=== PATIENT | female | born 1960 | race American Indian/Alaskan Native ===

== ENCOUNTER 2018-01-15 13:00 | Emergency (ER) | payer MEDICARE ==
[2018-01-15 14:10] LABS: Basophils # (Auto) 0.1 K/mm3 (0.0-0.1); Basophils % (Auto) 0.7 % (0.0-1.8); Eosinophils # (Auto) 0.1 K/mm3 (0.0-0.4); Hematocrit 41.1 % (30.3-42.9); Hemoglobin 13.2 gm/dl (10.1-14.3); Lymphocytes # (Auto) 2.7 K/mm3 (1.2-5.4); Lymphocytes % (Auto) 27.8 % (13.4-35.0); Mean Corpuscular HGB Conc 32 % (30-34); Mean Corpuscular Hemoglobin 27 pg (28-32); Mean Corpuscular Volume 84 fl (79-97); Monocytes # (Auto) 0.4 K/mm3 (0.0-0.8); Monocytes % (Auto) 3.6 % (0.0-7.3); Platelet Count 326 K/mm3 (140-440); Red Blood Count 4.91 M/mm3 (3.65-5.03); Red Cell Distribution Width 14.5 % (13.2-15.2)
[2018-01-15 14:22] LABS: Alanine Aminotransferase 15 units/L (7-56); Albumin 4.2 g/dL (3.9-5); BUN/Creatinine Ratio 11; Blood Urea Nitrogen 11 mg/dL (7-17); Calcium 9.5 mg/dL (8.4-10.2); Hemolysis Index 57
[2018-01-15 14:26] LABS: Bilirubin,Urine NEG (Negative); Blood,Urine NEG (Negative); Color,Urine Yellow (Yellow); Mucus,Urine FEW /HPF; Protein,Urine <15 mg/dL mg/dL (Negative); Urobilinogen,Urine < 2.0 mg/dL (<2.0)
[2018-01-15 14:27] LABS: WBC,Urine < 1.0 /HPF (0.0-6.0)
--- NOTE | 2018-01-15 14:56 | Cat Scan Report ---
CT HEAD WITHOUT CONTRAST: HISTORY: Weakness, blurred vision. TECHNIQUE: Sequential 2.5mm CT images. FINDINGS: Cerebral Parenchyma: Within normal limits. Cerebellum: Within normal limits. Brainstem: Within normal limits. Ventricles: Normal. Sella: Normal. Extra-axial spaces: Normal. Basal Cisterns: Normal. Intracranial Hemorrhage: None. Midline Shift: None. Calvarium: Normal. Sinuses: Normal. Mastoid Air Cells: Normal. Visualized Orbits: Normal. IMPRESSION: Cranial CT scan within normal limits. No significant change since 03/09/16.
[2018-01-15] MEDS ORDERED: APRESOLINE IV ONE ×2 (17:40→19:53)
--- NOTE | 2018-01-15 17:45 | Emergency Department Report ---
ED Neuro Deficit HPI - General Chief Complaint: Weakness Stated Complaint: BLURED VISION Time Seen by Provider: 01/15/18 15:39 Source: patient Mode of arrival: Ambulatory Limitations: No Limitations - History of Present Illness Initial Comments: This is a pleasant 57-year-old female with a past medical history significant for asthma, COPD, TIA, diabetes, hypertension, hemiparesis of the left side, gait abnormality, anxiety, acute lacunar stroke in 2017, ileus, palpitations, vertigo, dyspnea who reports that she was in her usual state of health this morning but began to experience weakness and dizziness and blurred vision that lasted about 10 minutes. She states that these episodes would come and go. She does report that she has had similar episodes in the past. She reports that her blood pressure was also elevated. She is concerned about a TIA or new cerebrovascular event at this time. Her speech is per usual. She denies smoking alcohol or illicit drug use. -: Sudden, minutes(s) (10) Location: left arm, left leg Presenting Symptoms: Present: Weak/Paralyzed One Side (chronic) Place: home Severity: mild Quality: weak Improves With: none Worsens With: none Context: sudden onset Associated Symptoms: malise, shortness of breath - Related Data Home Medications: Home Medications Medication Instructions Recorded Confirmed Last Taken Aspirin [Aspirin BABY CHEW TAB] 2 tab PO DAILY 03/09/16 03/09/16 03/09/16 Lisinopril [Zestril TAB] 40 mg PO QDAY 03/09/16 03/09/16 Unknown Simvastatin [Zocor TAB] 1 tab PO QHS 03/09/16 03/09/16 Unknown Triamter/Hctz 37.5-25 mg 1 tab PO DAILY 03/09/16 03/09/16 03/09/16 metFORMIN [Glucophage] 1,000 mg PO TID 03/09/16 03/09/16 03/09/16 Previous Rx's Medication Instructions Recorded Last Taken Type ALBUTEROL Inhaler [ProAir HFA 2 puff IH Q4H PRN #1 inha 02/23/15 Unknown Rx Inhaler] ISOSORBIDE MONOnitrate [Imdur ER] 30 mg PO QDAY #30 tablet 02/23/15 Unknown Rx hydrALAZINE [Apresoline TAB] 25 mg PO TID #90 tablet 02/23/15 Unknown Rx Losartan [Cozaar] 100 mg PO QDAY #30 tablet 01/15/18 Unknown Rx amLODIPine [Norvasc] 10 mg PO DAILY #30 tab 01/15/18 Unknown Rx Allergies/Adverse Reactions: Allergies Allergy/AdvReac Type Severity Reaction Status Date / Time No Known Allergies Allergy Verified 03/09/16 13:03 ED Review of Systems ROS: Stated complaint: BLURED VISION Other details as noted in HPI Comment: All other systems reviewed and negative Constitutional: see HPI Eyes: as per HPI ENT: as per HPI Respiratory: see HPI Cardiovascular: as per HPI Endocrine: see HPI Gastrointestinal: as per HPI Genitourinary: as per HPI Musculoskeletal: as per HPI Skin: as per HPI Neurological: as per HPI Psychiatric: as per HPI Hematological/Lymphatic: as per HPI ED Past Medical Hx - Past Medical History Hx Hypertension: Yes Hx CVA: Yes (TIA/ABN GAIT/LUCUNAR STROKE) Hx Heart Attack/AMI: Yes Hx Congestive Heart Failure: No Hx Diabetes: Yes Hx Psychiatric Treatment: Yes (ANXIETY) Hx Asthma: Yes Hx COPD: Yes Additional medical history: vertigo///LEFT SIDED WEAKNESS R/T TIA/ILEUS, PALPITATIONS - Social History Smoking Status: Never Smoker Substance Use Type: None - Medications Home Medications: Home Medications Medication Instructions Recorded Confirmed Last Taken Type ALBUTEROL Inhaler [ProAir HFA 2 puff IH Q4H PRN #1 inha 02/23/15 03/09/16 Unknown Rx Inhaler] ISOSORBIDE MONOnitrate [Imdur ER] 30 mg PO QDAY #30 tablet 02/23/15 03/09/16 Unknown Rx hydrALAZINE [Apresoline TAB] 25 mg PO TID #90 tablet 02/23/15 03/09/16 Unknown Rx Aspirin [Aspirin BABY CHEW TAB] 2 tab PO DAILY 03/09/16 03/09/16 03/09/16 History Lisinopril [Zestril TAB] 40 mg PO QDAY 03/09/16 03/09/16 Unknown History Simvastatin [Zocor TAB] 1 tab PO QHS 03/09/16 03/09/16 Unknown History Triamter/Hctz 37.5-25 mg 1 tab PO DAILY 03/09/16 03/09/16 03/09/16 History metFORMIN [Glucophage] 1,000 mg PO TID 03/09/16 03/09/16 03/09/16 History Losartan [Cozaar] 100 mg PO QDAY #30 tablet 01/15/18 Unknown Rx amLODIPine [Norvasc] 10 mg PO DAILY #30 tab 01/15/18 Unknown Rx ED Neuro Physical Exam - General Limitations: No Limitations General appearance: alert, in no apparent distress Suspected Stroke: Yes - Head Head exam: Present: atraumatic, normocephalic - Eye Eye exam: Present: normal appearance, PERRL, EOMI - ENT ENT exam: Present: normal exam, normal orophraynx - Neck Neck exam: Present: normal inspection - Respiratory Respiratory exam: Present: normal lung sounds bilaterally. Absent: respiratory distress, wheezes, rales, rhonchi - Cardiovascular Cardiovascular Exam: Present: regular rate, normal rhythm, normal heart sounds - GI/Abdominal GI/Abdominal exam: Present: soft, distended - Rectal Rectal exam: Present: deferred - External exam: Present: normal external exam - Extremities Exam Extremities exam: Present: normal inspection, normal capillary refill, other ( the patient does have weakness of the left hand and audit director strength, as well as weakness of the left lower extremity against gravity and resistance when compared to the right. This is a part of her past medical history and appears to be chronic and without change from previous.) - Back Exam Back exam: Present: normal inspection, full ROM - Neurological Exam Neurological exam: Present: alert, altered, CN II-XII intact - NIHSS Assessment Interval: Baseline 1a. Level of Consciousness: alert 1b. LOC Questions: answers correctly 1c. LOC Commands: performs tasks correctly 2. Best Gaze: normal 3. Visual: no visual loss 4. Facial Palsy: normal symmetrical movement 5b. Motor Arm Right: no drift 5a. Motor Arm Left: no drift 6a. Motor Leg Left: no drift 6b. Motor Leg Right: no drift 7. Limb Ataxia: absent 8. Sensory: normal 9. Best Language: no aphasia 10. Dysarthria: normal 11. Extinction/Inattention: no abnormality Total Score: 0 Stroke Severity: No Stroke Symptoms - Psychiatric Psychiatric exam: Present: normal affect, normal mood - Skin Skin exam: Present: warm, dry, intact, normal color ED Course Vital Signs 01/15/18 01/15/18 01/15/18 13:36 17:39 17:51 Temperature 98 F Pulse Rate 103 H 85 85 Respiratory 18 19 Rate Blood Pressure 220/113 176/96 Blood Pressure 196/100 [Left] O2 Sat by Pulse 99 Oximetry 01/15/18 01/15/18 01/15/18 18:16 18:30 18:40 Temperature Pulse Rate 95 H Respiratory 16 16 Rate Blood Pressure 151/79 Blood Pressure 154/82 [Left] O2 Sat by Pulse Oximetry 01/15/18 01/15/18 19:18 19:30 Temperature Pulse Rate 90 105 H Respiratory 17 17 Rate Blood Pressure 141/83 168/115 Blood Pressure [Left] O2 Sat by Pulse 97 Oximetry - Reevaluation(s) Reevaluation #1: 01/15/18 17:48 Her blood work is within normal limits. Her head CT does not appear to show any new findings at this time. Her blood pressure however remains high. We gave hydralazine 10 mg IV 1. The patient states she still does not feel "normal". At this time we will try to control her blood pressure, and discussed the case with the hospitalist. 01/15/18 19:59 After discussion with the hospitalist, we will give an additional dose of hydralazine 10 mg IV here, also losartan 100 mg by mouth, and started her on an outpatient basis on amlodipine 10 mg and losartan 100 mg by mouth she is to follow-up also with her primary care doctor. As to the patient she was agreeable to the plan we will discharge accordingly. - Lab Data Result diagrams: 01/15/18 13:51 01/15/18 13:51 Lab Results 01/15/18 01/15/18 01/15/18 Range/Units 13:51 13:51 14:15 WBC 9.8 (4.5-11.0) K/mm3 RBC 4.91 (3.65-5.03) M/mm3 Hgb 13.2 (10.1-14.3) gm/dl Hct 41.1 (30.3-42.9) % MCV 84 (79-97) fl MCH 27 L (28-32) pg MCHC 32 (30-34) % RDW 14.5 (13.2-15.2) % Plt Count 326 (140-440) K/mm3 Lymph % (Auto) 27.8 (13.4-35.0) % [place] % (Auto) 3.6 (0.0-7.3) % Eos % (Auto) 1.0 (0.0-4.3) % Baso % (Auto) 0.7 (0.0-1.8) % Lymph # 2.7 (1.2-5.4) K/mm3 Crenshaw # 0.4 (0.0-0.8) K/mm3 Eos # 0.1 (0.0-0.4) K/mm3 Baso # 0.1 (0.0-0.1) K/mm3 Seg Neutrophils % 66.9 (40.0-70.0) % Seg Neutrophils # 6.6 (1.8-7.7) K/mm3 Sodium 140 (137-145) mmol/L Potassium 4.3 (3.6-5.0) mmol/L Chloride 101.6 (98-107) mmol/L Carbon Dioxide 25 (22-30) mmol/L Anion Gap 18 mmol/L BUN 11 (7-17) mg/dL Creatinine 1.0 (0.7-1.2) mg/dL Estimated GFR > 60 ml/min BUN/Creatinine Ratio 11 % Glucose 105 H (65-100) mg/dL POC Glucose (70-105) Calcium 9.5 (8.4-10.2) mg/dL Total Bilirubin 0.30 (0.1-1.2) mg/dL AST 16 (5-40) units/L ALT 15 (7-56) units/L Alkaline Phosphatase 161 H (35-129) units/L Total Protein 6.9 (6.3-8.2) g/dL Albumin 4.2 (3.9-5) g/dL Albumin/Globulin Ratio 1.6 % Urine Color Yellow (Yellow) Urine Turbidity Clear (Clear) Urine pH 6.0 (5.0-7.0) Ur Specific [place] 1.009 (1.003-1.030) Urine Protein <15 mg/dl (Negative) mg/dL Urine Glucose (UA) Neg (Negative) mg/dL Urine Ketones Neg (Negative) mg/dL Urine Blood Neg (Negative) Urine Nitrite Neg (Negative) Urine Bilirubin Neg (Negative) Urine Urobilinogen < 2.0 (<2.0) mg/dL Ur Leukocyte Esterase Neg (Negative) Urine WBC (Auto) < 1.0 (0.0-6.0) /HPF Urine RBC (Auto) 2.0 (0.0-6.0) /HPF U Epithel Cells (Auto) 5.0 (0-13.0) /HPF Urine Mucus Few /HPF 01/15/18 Range/Units 14:30 WBC (4.5-11.0) K/mm3 RBC (3.65-5.03) M/mm3 Hgb (10.1-14.3) gm/dl Hct (30.3-42.9) % MCV (79-97) fl MCH (28-32) pg MCHC (30-34) % RDW (13.2-15.2) % Plt Count (140-440) K/mm3 Lymph % (Auto) (13.4-35.0) % Crenshaw % (Auto) (0.0-7.3) % Eos % (Auto) (0.0-4.3) % Baso % (Auto) (0.0-1.8) % Lymph # (1.2-5.4) K/mm3 C[place]shaw # (0.0-0.8) K/mm3 Eos # (0.0-0.4) K/mm3 Baso # (0.0-0.1) K/mm3 Seg Neutrophils % (40.0-70.0) % Seg Neutrophils # (1.8-7.7) K/mm3 Sodium (137-145) mmol/L Potassium (3.6-5.0) mmol/L Chloride (98-107) mmol/L Carbon Dioxide (22-30) mmol/L Anion Gap mmol/L BUN (7-17) mg/dL Creatinine (0.7-1.2) mg/dL Estimated GFR ml/min BUN/Creatinine Ratio % Glucose (65-100) mg/dL POC Glucose 98 (70-105) Calcium (8.4-10.2) mg/dL Total Bilirubin (0.1-1.2) mg/dL AST (5-40) units/L ALT (7-56) units/L Alkaline Phosphatase (35-129) units/L Total Protein (6.3-8.2) g/dL Albumin (3.9-5) g/dL Albumin/Globulin Ratio % Urine Color (Yellow) Urine Turbidity (Clear) Urine pH (5.0-7.0) Ur Specific [place] (1.003-1.030) Urine Protein (Negative) mg/dL Urine Glucose (UA) (Negative) mg/dL Urine Ketones (Negative) mg/dL Urine Blood (Negative) Urine Nitrite (Negative) Urine Bilirubin (Negative) Urine Urobilinogen (<2.0) mg/dL Ur Leukocyte Esterase (Negative) Urine WBC (Auto) (0.0-6.0) /HPF Urine RBC (Auto) (0.0-6.0) /HPF U Epithel Cells (Auto) (0-13.0) /HPF Urine Mucus /HPF Critical care attestation.: If time is entered above; I have spent that time in minutes in the direct care of this critically ill patient, excluding procedure time. ED Disposition Clinical Impression: Hypertensive emergency TIA (transient ischemic attack) Qualifiers: Transient cerebral ischemia type: other Qualified Code(s): G45.8 - Other transient cerebral ischemic attacks and related syndromes Disposition: DC-01 TO HOME OR SELFCARE Is pt being admited?: No Does the pt Need Aspirin: No Condition: Stable Instructions: Hypertension (ED) Prescriptions: amLODIPine [Norvasc] 10 mg PO DAILY #30 tab Losartan [Cozaar] 100 mg PO QDAY #30 tablet Referrals: PRIMARY CARE, [Primary Care Provider] - 3-5 Days
[2018-01-15] MEDS ORDERED: COZAAR PO ONE (19:53)
[2018-01-15 20:05] VITALS: BP 172/88
== END 2018-01-15 20:15 | disposition home or self-care (01) ==
LOC: ED 13:00
DX: I10 Essential (primary) hypertension (principal); G45.8 Other transient cerebral ischemic attacks and related syndromes; J45.909 Unspecified asthma, uncomplicated; E11.9 Type 2 diabetes mellitus without complications; G81.94 Hemiplegia, unspecified affecting left nondominant side; F41.9 Anxiety disorder, unspecified; Z79.82 Long term (current) use of aspirin
CPT/HCPCS: 36415; 51701; 70450; 80053; 81001; 82962; 85025; 93005; 93010; 96374; 96376; 99284; J0360

== ENCOUNTER 2018-05-27 18:20 | Inpatient (IN) | payer MEDICARE ==
[2018-05-27 19:14] LABS: Basophils # (Auto) 0.1 K/mm3 (0.0-0.1); Basophils % (Auto) 0.8 % (0.0-1.8); Eosinophils # (Auto) 0.1 K/mm3 (0.0-0.4); Eosinophils % (Auto) 0.7 % (0.0-4.3); Hematocrit 39.6 % (30.3-42.9); Lymphocytes # (Auto) 3.1 K/mm3 (1.2-5.4); Lymphocytes % (Auto) 29.5 % (13.4-35.0); Mean Corpuscular HGB Conc 33 % (30-34); Mean Corpuscular Hemoglobin 28 pg (28-32); Mean Corpuscular Volume 85 fl (79-97); Monocytes # (Auto) 0.4 K/mm3 (0.0-0.8); Monocytes % (Auto) 4.1 % (0.0-7.3); Platelet Count 329 K/mm3 (140-440); Red Blood Count 4.65 M/mm3 (3.65-5.03); Red Cell Distribution Width 14.3 % (13.2-15.2)
[2018-05-27 19:28] LABS: BUN/Creatinine Ratio 12; Blood Urea Nitrogen 11 mg/dL (7-17); Calcium 9.7 mg/dL (8.4-10.2); Hemolysis Index 6
[2018-05-27] MEDS ORDERED: NITROSTAT SL ONE (21:26)
[2018-05-27] MEDS ORDERED: TYLENOL #3 PO ONE (21:26)
--- NOTE | 2018-05-27 21:26 | Emergency Department Report ---
HPI - General Chief Complaint: Chest Pain Time Seen by Provider: 05/27/18 19:32 - HPI HPI: The patient is a 58-year-old female presents for evaluation of chest pain. The patient reports chest pain since 11 AM this morning, pressure-like in quality, constant since onset, currently moderate in severity, exacerbated with activity. The patient denies trauma to the chest, cough, syncope, dyspnea, hemoptysis, unilateral leg swelling, recent immobilization, history of DVT or PE , hx of recent cancer. ED Past Medical Hx - Past Medical History Hx Hypertension: Yes Hx CVA: Yes (TIA/ABN GAIT/LUCUNAR STROKE) Hx Heart Attack/AMI: Yes Hx Congestive Heart Failure: No Hx Diabetes: Yes Hx Psychiatric Treatment: Yes (ANXIETY) Hx Asthma: Yes Hx COPD: Yes Additional medical history: vertigo///LEFT SIDED WEAKNESS R/T TIA/ILEUS, PALPITATIONS - Surgical History Hx Cholecystectomy: Yes - Social History Smoking Status: Never Smoker Substance Use Type: None - Medications Home Medications: Home Medications Medication Instructions Recorded Confirmed Last Taken Type ALBUTEROL Inhaler [ProAir HFA 2 puff IH Q4H PRN #1 inha 02/23/15 03/09/16 Unknown Rx Inhaler] ISOSORBIDE MONOnitrate [Imdur ER] 30 mg PO QDAY #30 tablet 02/23/15 03/09/16 Unknown Rx hydrALAZINE [Apresoline TAB] 25 mg PO TID #90 tablet 02/23/15 03/09/16 Unknown Rx Aspirin [Aspirin BABY CHEW TAB] 2 tab PO DAILY 03/09/16 03/09/16 03/09/16 History Lisinopril [Zestril TAB] 40 mg PO QDAY 03/09/16 03/09/16 Unknown History Simvastatin [Zocor TAB] 1 tab PO QHS 03/09/16 03/09/16 Unknown History Triamter/Hctz 37.5-25 mg 1 tab PO DAILY 03/09/16 03/09/16 03/09/16 History metFORMIN [Glucophage] 1,000 mg PO TID 03/09/16 03/09/16 03/09/16 History Losartan [Cozaar] 100 mg PO QDAY #30 tablet 01/15/18 Unknown Rx amLODIPine [Norvasc] 10 mg PO DAILY #30 tab 01/15/18 Unknown Rx ED Review of Systems ROS: Stated complaint: CHEST PAIN Other details as noted in HPI Constitutional: denies: fever ENT: denies: throat or neck pain Respiratory: denies: cough, shortness of breath Cardiovascular: reports chest pain Endocrine: denies unexplained weight loss or gain Gastrointestinal: denies: abdominal pain, nausea Genitourinary: denies: dysuria Musculoskeletal: denies: leg swelling Skin: denies: rash Neurological: denies: headache Hematological/Lymphatic: denies: easy bleeding or easy bruising Psych: denies sadness or hopelessness Physical Exam - Physical Exam Vital Signs: Vital Signs 05/27/18 05/27/18 05/27/18 18:42 19:39 21:01 Temperature 98 F 98.5 F Pulse Rate 62 65 75 Respiratory 18 17 17 Rate Blood Pressure 196/97 170/77 Blood Pressure 175/90 [Right] O2 Sat by Pulse 100 100 97 Oximetry Physical Exam: General: well-nourished, well-developed, no acute distress Head: Normocephalic, atraumatic Eyes: normal sclera ENT: Mucous membranes are pink and moist Neck: trachea midline, neck supple, No neck stiffness, no cervical adenopathy Respiratory: Breath sounds equal bilaterally, no wheezing, rales, or rhonchi Cardio: S1 and S2 present, no murmurs, rubs, gallops, capillary refill is brisk Abdomen: Normoactive bowel sounds, soft abdomen, no rigidity, no guarding or rebound tenderness Chest WALL/Back: No tenderness to palpation of the chest wall, no CVA tenderness with percussion Musc: No pitting edema Skin: No rash Neuro: no facial drooping, normal speech Psych: Normal affect ED Course Vital Signs 05/27/18 05/27/18 05/27/18 18:42 19:39 21:01 Temperature 98 F 98.5 F Pulse Rate 62 65 75 Respiratory 18 17 17 Rate Blood Pressure 196/97 170/77 Blood Pressure 175/90 [Right] O2 Sat by Pulse 100 100 97 Oximetry ED Medical Decision Making - Lab Data Result diagrams: 05/27/18 18:58 05/27/18 18:58 - Medical Decision Making The patient was seen and examined by myself. The patient is placed on a stable helper and continuous pulse ox. On initial evaluation, the patient was found to be in no distress. EKG was negative for findings suggestive of acute cardiac infarct. The patient is given an aspirin and a nitroglycerin tablet. Labs and imaging are obtained. Chest x-ray is negative for pneumothorax, focal consolidation, pulmonary vascular congestion, pleural effusion, or other obvious acute cardiopulmonary disease process. Lab results were non-revealing including negative troponin, WBC, hemoglobin, hematocrit, electrolytes, renal function. The patient was reevaluated and reported that their symptoms were improved. As the patient has chest pain and risk factors for development of acute coronary event, the patient will be admitted for close cardiopulmonary monitoring, serial troponins, and evaluation by cardiology. The physician on-call was contacted. They presented to the emergency department and evaluated the patient. They agreed to admit the patient. The ED admit order was placed. The patient was admitted in guarded condition. Critical care attestation.: If time is entered above; I have spent that time in minutes in the direct care of this critically ill patient, excluding procedure time. ED Disposition Clinical Impression: Acute chest pain Disposition: DC-09 OP ADMIT IP TO THIS HOSP Is pt being admited?: Yes Does the pt Need Aspirin: Yes Condition: Stable Instructions: Chest Pain (ED) Referrals: PRIMARY CARE, [Primary Care Provider] - 3-5 Days Time of Disposition: 21:26
[2018-05-27] MEDS ORDERED: BABY ASPIRIN PO ONE (21:27)
[2018-05-27] MEDS ORDERED: NITROSTAT SL PRN (21:56)
[2018-05-27] MEDS ORDERED: ZOFRAN IV PRN (21:57)
[2018-05-27] MEDS ORDERED: TYLENOL PO PRN (21:58)
--- NOTE | 2018-05-27 21:58 | XRay Report ---
FINAL REPORT PROCEDURE: XR CHEST 1V AP TECHNIQUE: Chest radiograph anteroposterior view. CPT 92848 HISTORY: chest pain COMPARISON: No prior studies are available for comparison. FINDINGS: Heart: Magnified due to projection, appears to be normal size.. Mediastinum/Vessels: Normal. Lungs/Pleural space: Clear.. Bony thorax: No acute osseous abnormality. Life support devices: None. IMPRESSION: No acute cardiopulmonary abnormality.
[2018-05-27] MEDS ORDERED: HEPARIN ONE (22:50)
[2018-05-27] MEDS: HEPARIN SUB-Q SCH (22:57)
[2018-05-27] MEDS: MORPHINE IV PRN (23:48)
[2018-05-28 01:38] LABS: Creatine Kinase MB 1.3 ng/mL (0.0-4.0)
[2018-05-28] MEDS: NITRO-BID 2% TP SCH ×3 (05:46→13:16)
[2018-05-28] MEDS: MORPHINE IV PRN (05:47)
[2018-05-28 07:00] LABS: Creatine Kinase MB 1.3 ng/mL (0.0-4.0)
[2018-05-28] MEDS ORDERED: LEXISCAN IV ONE ×2 (08:54→09:00)
[2018-05-28] MEDS ORDERED: ASPIRIN PO SCH (10:00)
--- NOTE | 2018-05-28 10:20 | History and Physical Report ---
CHIEF COMPLAINT: Chest pain. HISTORY OF PRESENT ILLNESS: The patient is a 58-year-old female who said she has been having chest pain in the precordial and retrosternal area going on since the morning of 05/27/2018. Pain is pressure like in nature and exacerbated with activity. The patient states that pain radiates to the left upper extremity and that is associated with nausea, vomiting, shortness of breath and sweating. Pain was relieved with pain medication and nitroglycerin and there was no history of cough, no history of fever or chills. PAST MEDICAL HISTORY: Pertinent for hypertension, cerebrovascular accident, coronary artery disease, status post myocardial infarction, diabetes mellitus, anxiety disorder, asthma, COPD, vertigo, TIAs. PAST SURGICAL HISTORY: Pertinent for cholecystectomy. FAMILY HISTORY: Positive for coronary artery disease in the sister. SOCIAL HISTORY: The patient does not smoke, does not drink alcohol, and does not use illicit drugs. MEDICATIONS: The patient is on albuterol two puff inhalation every 4 hours, isosorbide mononitrate 30 mg by mouth daily, hydralazine 25 mg by mouth 3 times daily, baby aspirin two tablets by mouth daily, lisinopril 40 mg by mouth daily, Zocor 1 tablet dose unknown daily, triamterene/HCTZ 37.5/25 mg 1 by mouth daily, metformin 1000 mg by mouth 3 times daily, losartan 100 mg by mouth daily, amlodipine 10 mg by mouth daily. ALLERGIES: There are no known drug allergies. REVIEW OF SYSTEMS: CONSTITUTIONAL: There is no fever, no chills. Diaphoresis is present. HEENT: There is no headache or sore throat. CARDIOVASCULAR SYSTEM: Chest pain is present. No orthopnea. RESPIRATORY SYSTEM: Shortness of breath is present. No cough. GASTROINTESTINAL SYSTEM: There is nausea and vomiting present. No abdominal pain, diarrhea or constipation. NEUROLOGICAL SYSTEM: There is no numbness, no dizziness, no altered mental status. MUSCULOSKELETAL SYSTEM: There is no joint pain or swelling. DERMATOLOGICAL SYSTEM: There is no skin rash or itching. GENITOURINARY SYSTEM: There are no dysuria, hematuria or flank pain. Rest of system review is normal. PHYSICAL EXAMINATION: GENERAL: At the time of examination, the patient was found to be alert, oriented x 3, and not in acute distress. VITAL SIGNS: At the initial time of presentation showed temperature of 98 degree Fahrenheit, pulse of 62, respirations 18, blood pressure 196/97, O2 sat of 100% on room air. HEENT: Examination shows pupils to be equal, round, reactive to light and accommodating. Extraocular muscles are intact. NECK: Supple with no JVD or carotid bruits. CARDIOVASCULAR SYSTEM: Shows normal first and second heart sounds with no gallops or murmurs. RESPIRATORY SYSTEM: Shows good air entry on both sides of the lungs with no abnormal breath sounds. GASTROINTESTINAL SYSTEM: Shows abdomen to be full, soft, nontender with no organomegaly or rigidity. NEUROLOGIC: Examination shows no focal deficits. MUSCULOSKELETAL SYSTEM: Shows no joint swelling or tenderness. DERMATOLOGICAL SYSTEM: Shows no skin rash. GENITOURINARY SYSTEM: Showing no costovertebral angle tenderness. PERTINENT LABORATORY AND IMAGING STUDIES: The patient had chest x-ray done that shows no active cardiopulmonary lesion. DIAGNOSIS: Chest pain. PLAN: 1. The patient will be admitted to telemetry. We will have cardiac enzymes check q.6 hours x 2 more levels. 2. The patient will be n.p.o. for Lexiscan stress test this morning, 05/28/2018. 3. The patient will be on nitro paste one-inch to anterior chest wall q.i.d. 4. The patient will be on sublingual nitroglycerin 0.4 mg every 5 minutes for breakthrough chest pain and will be on heparin 5000 units subcutaneous q. 12 hours for DVT prophylaxis. 5. The patient will be on aspirin 325 mg by mouth daily and will be on IV morphine 2 mg every 5 minutes as needed for chest pain. 6. The patient will be on Zofran 4 mg IV every 8 hours for nausea and vomiting and will be on oxygen by nasal cannula 2 liters per minute. 7. The patient will have Lexiscan stress test done this morning and will remain n.p.o. for this test. JOB# [id number] OCN/NTS
[2018-05-28] MEDS ORDERED: PROAIR IH PRN (10:40)
--- NOTE | 2018-05-28 10:42 | Discharge Summary ---
Providers - Providers Date of Admission: 05/27/18 21:50 Attending physician: TAMARA ZHU MD Primary care physician: CORPORATE SECURITY MANAGER Hospitalization Reason for admission: chest pain Condition: Stable Hospital course: The patient is a 58-year-old female presents for evaluation of chest pain. The patient reports chest pain since 11 AM this morning, pressure-like in quality, constant since onset, currently moderate in severity, exacerbated with activity. The patient denies trauma to the chest, cough, syncope, dyspnea, hemoptysis, unilateral leg swelling, recent immobilization, history of DVT or PE , hx of recent cancer. Patient on admission was risk stratified sent for stress test which was negative chest x-ray and abdominal x-ray was unremarkable. She is clinically stable at this time for discharge. Discharge diagnosis Atypical chest pain likely secondary to GERD htn morbid obesity Disposition: - TO HOME OR SELFCARE Time spent for discharge: 35 mins Core Measure Documentation - Palliative Care Palliative Care/ Comfort Measures: Not Applicable - Core Measures Any of the following diagnoses?: none - VTE Discharge Requirements Deep Vein Thrombosis/Pulmonary Embolism Present on Admission: No Exam - Physical Exam Narrative exam: VITAL SIGNS: Reviewed. GENERAL: The patient appeared well nourished and normally developed. Vital signs as documented. HEAD: No signs of head trauma. EYES: Pupils are equal. Extraocular motions intact. EARS: Hearing grossly intact. MOUTH: Oropharynx is normal. NECK: No adenopathy, no JVD. CHEST: Chest with clear breath sounds bilaterally. No wheezes, rales, or rhonchi. CARDIAC: Regular rate and rhythm. S1 and S2, without murmurs, gallops, or rubs. VASCULAR: No Edema. Peripheral pulses normal and equal in all extremities. ABDOMEN: Soft, without detectable tenderness. No sign of distention. No rebound or guarding, and no masses palpated. Bowel Sounds normal. MUSCULOSKELETAL: Good range of motion of all major joints. Extremities without clubbing, cyanosis or edema. NEUROLOGIC EXAM: Alert and oriented x 3. No focal sensory or strength deficits. Speech normal. Follows commands. PSYCHIATRIC: Mood normal. SKIN: No rash or lesions. - Constitutional Vitals: Temp Pulse Resp BP Pulse Ox 97.7 F 55 L 18 131/68 98 05/28/18 05:23 05/28/18 05:46 05/28/18 05:47 05/28/18 05:46 05/28/18 05:23 Plan Activity: advance as tolerated, fall precautions Diet: low cholesterol Special Instructions: record daily BP diary Follow up with: PRIMARY CARE, [Primary Care Provider] - 3-5 Days
[2018-05-28] MEDS ORDERED: PROVENTIL IH PRN (10:53)
[2018-05-28] MEDS: HEPARIN SUB-Q SCH (11:49)
[2018-05-28 11:54] VITALS: BP 120/67
[2018-05-28] MEDS ORDERED: GLUCOPHAGE PO SCH (12:00)
[2018-05-28] MEDS ORDERED: ASPIRIN PO NR (13:30)
--- NOTE | 2018-05-28 13:48 | XRay Report ---
AP ABDOMEN: HISTORY: Distended abdomen. The abdominal gas pattern is unremarkable. No masses or organomegaly is identified and there is no gross evidence of free air or fluid. No significant soft tissue calcifications are noted. Cholecystectomy changes are noted. IMPRESSION: Unremarkable abdomen.
[2018-05-28] MEDS ORDERED: APRESOLINE PO SCH (14:00)
[2018-05-28] MEDS ORDERED: SIMVASTATIN PO SCH (22:00)
[2018-05-28] MEDS ORDERED: PRAVACHOL PO SCH (22:00)
--- NOTE | 2018-05-29 01:14 | Treadmill Report ---
THALLIUM STRESS TEST LEFT VENTRICLE: Left ventricular chamber size is within normal. Perfusion study demonstrates somewhat heterogeneous uptake of the tracer in all segments, but no significant defects identified. Gated analysis demonstrates normal left ventricular systolic function, ejection fraction 62%. CONCLUSION: Normal myocardial perfusion study. JOB# [id number] CA/NTS
[2018-05-29] MEDS ORDERED: ZESTRIL PO SCH ×2 (10:00)
[2018-05-29] MEDS ORDERED: BABY ASPIRIN PO SCH (10:00)
[2018-05-29] MEDS ORDERED: IMDUR PO SCH (10:00)
[2018-05-29] MEDS ORDERED: NORVASC PO SCH (10:00)
[2018-05-29] MEDS ORDERED: COZAAR PO SCH (10:00)
[2018-05-29] MEDS ORDERED: NON-FORMULARY (Losartan [Cozaar] 100 MG) PO SCH (10:00)
[2018-05-29] MEDS ORDERED: MAXZIDE-25 PO SCH (10:00)
== END 2018-05-28 16:31 | disposition home or self-care (01) | DRG 392 ==
LOC: ED 18:20 → 4A 21:50
PROVIDERS: ADMIT Internal Medicine; ATTEND Internal Medicine
DX: K21.9 Gastro-esophageal reflux disease without esophagitis (principal); E66.01 Morbid (severe) obesity due to excess calories; Z68.39 Body mass index [BMI] 39.0-39.9, adult; I10 Essential (primary) hypertension; J44.9 Chronic obstructive pulmonary disease, unspecified; Z86.73 Personal history of transient ischemic attack (TIA), and cerebral infarction without residual deficits; I25.2 Old myocardial infarction; E11.9 Type 2 diabetes mellitus without complications; Z90.49 Acquired absence of other specified parts of digestive tract; Z79.82 Long term (current) use of aspirin; Z79.899 Other long term (current) drug therapy; F41.9 Anxiety disorder, unspecified
CPT/HCPCS: 36415; 71045; 74018; 78452; 80048; 82550; 82553; 82962; 84484; 85025; 93005; 93010; 93017; A9502; J1644; J2270; J2405; J2785